=== PATIENT | male | born 1930 | race African-American/Black ===

== ENCOUNTER 2016-12-29 20:15 | Inpatient (IN) | payer MEDICARE, OTHER ==
[~2016-12-29] VITALS: Ht 172.7 cm; Wt 73.0 kg
[2016-12-29] MEDS ORDERED: METHYLPREDNISOLONE SOD SUCC 125 MG/2 ML VIAL IV STA (20:19)
[2016-12-29] MEDS ORDERED: IPRATROPIUM BROMIDE (0.02%) 0.5MG/2.5ML NEB HHN STA (20:19)
[2016-12-29] MEDS ORDERED: ALBUTEROL (0.083%) 2.5MG/3ML NEB HHN STA (20:19)
[2016-12-29] MEDS ORDERED: MAGNESIUM 2 G PREMIX 50 ML IV ONE (20:30)
[2016-12-29] MEDS ORDERED: LIDOCAINE HCL 1%/EPI 1:200,000 30 ML VIAL MC ONE (20:45)
[2016-12-29 20:59] LABS: BASOPHILS % 0.5 % (0.0-2.0); EOSINOPHILS % 6.3 % (0.0-5.0); HEMATOCRIT. 35.1 % (42.0-52.0); HEMOGLOBIN. 11.5 g/dL (14.0-18.0); LYMPHOCYTES % 18.8 % (20.0-50.0); MEAN CORPUSCULAR HEMOGLOBIN 25.8 pg (28.0-32.0); MEAN CORPUSCULAR VOLUME 78.5 fL (80.0-94.0); MEAN PLATELET VOLUME 7.5 fl (7.4-10.4); MONOCYTES % 14.4 % (2.0-8.0); PLATELET 350 x1000/uL (130-400); RED BLOOD CELL COUNT 4.47 mill/uL (4.7-6.1); RED CELL DISTRIBUTION WIDTH 19.2 % (11.6-14.6)
[2016-12-29] MEDS ORDERED: MORPHINE SULFATE 4 MG/ML CPJ (NOT FOR IM USE) IV ONE (21:00)
[2016-12-29] MEDS ORDERED: ONDANSETRON HCL 4MG/2ML VIAL IV ONE (21:00)
[2016-12-29 21:08] LABS: CARBON DIOXIDE 28 mEq/L (21-32); CHLORIDE 103 mEq/L (98-107); INR 1.2; PROTHROMBIN TIME 12.4 sec (9.4-11.6)
[2016-12-29 21:16] LABS: TROPONIN I < 0.02 ng/mL (0.00-0.04)
[2016-12-29] MEDS ORDERED: MORPHINE SULFATE 10 MG/ML CPJ IV SCH (21:30)
[2016-12-29] MEDS ORDERED: MIDAZOLAM HCL 2 MG/2 ML VIAL IV ONE (23:00)
[2016-12-30] VITALS (11 sets, daily range): BP systolic 114–171; BP diastolic 63–95
[2016-12-30] MEDS ORDERED: CEFAZOLIN 1000MG PREMIX 50 ML IV ONE
[2016-12-30] MEDS ORDERED: MORPHINE SULFATE 4 MG/ML CPJ (NOT FOR IM USE) IV ONE (00:15)
[2016-12-30] MEDS ORDERED: MAGNESIUM/ALUMINUM HYDROXIDE/SIMETHICONE 30ML UDC PO PRN (01:00)
[2016-12-30] MEDS ORDERED: ONDANSETRON HCL 4MG/2ML VIAL IV PRN (01:00)
[2016-12-30] MEDS ORDERED: HYDROCODONE/ACETAMINOPHEN 10/325MG TABLET PO PRN (01:00)
[2016-12-30] MEDS ORDERED: NA PHOS,M-B/NA PHOS,DI-BA ENEMA 118ML PR PRN (01:00)
[2016-12-30] MEDS ORDERED: ENOXAPARIN 40MG/0.4ML SYR SUBCUT SCH ×2 (01:00→09:00)
[2016-12-30] MEDS ORDERED: METHYLPREDNISOLONE SOD SUCC 125 MG/2 ML VIAL IV SCH (01:00)
[2016-12-30] MEDS ORDERED: GUAIFENESIN 200MG/10ML SUGAR FREE UDC PO PRN (01:00)
[2016-12-30] MEDS ORDERED: IPRATROPIUM/ALBUTEROL 0.5-3(2.5)MG/3ML NEB INH PRN ×2 (01:00→01:45)
[2016-12-30] MEDS ORDERED: HYDROMORPHONE HCL/PF 2MG/ML CPJ IV PRN (01:00)
[2016-12-30] MEDS ORDERED: DOCUSATE SODIUM 100MG CAPSULE PO PRN (01:00)
[2016-12-30] MEDS ORDERED: LEVOFLOXACIN 500MG PREMIX 100 ML IV SCH ×2 (01:00→06:00)
[2016-12-30] MEDS ORDERED: ACETAMINOPHEN 325MG TABLET PO PRN (01:00)
[2016-12-30] MEDS ORDERED: LORAZEPAM 2MG/ML CPJ IV PRN ×2 (01:00→01:45)
[2016-12-30] MEDS ORDERED: DIPHENHYDRAMINE 50MG/ML VIAL IV PRN (01:00)
[2016-12-30] MEDS ORDERED: CLONIDINE 0.1MG TABLET PO PRN ×2 (01:00→01:45)
[2016-12-30] MEDS ORDERED: MORPHINE SULFATE 10 MG/ML CPJ IV NR (01:15)
[2016-12-30] MEDS ORDERED: FLUT1DIS6 IH (02:49)
[2016-12-30] MEDS ORDERED: MELO-106 PO (02:49)
[2016-12-30] MEDS ORDERED: RIVA20TA PO (02:49)
[2016-12-30] MEDS ORDERED: SIMV40TA5 PO (02:49)
[2016-12-30] MEDS ORDERED: NIFE90TA2 PO (02:49)
[2016-12-30] MEDS ORDERED: CILO100T PO (02:49)
[2016-12-30] MEDS ORDERED: DOCU-138 PO (02:49)
[2016-12-30] MEDS ORDERED: MONT10TA21 PO (02:49)
[2016-12-30] MEDS ORDERED: TAMS-11 PO (02:49)
[2016-12-30] MEDS ORDERED: TRAM50TA3 PO (02:49)
[2016-12-30] MEDS ORDERED: RANI150T7 PO (02:52)
[2016-12-30] MEDS ORDERED: RANITIDINE HCL 75 MG PO PRN (03:00)
[2016-12-30] MEDS ORDERED: TRAMADOL 50MG TABLET PO PRN (03:00)
[2016-12-30] MEDS: HYDROMORPHONE HCL/PF 2MG/ML CPJ IV PRN ×2 (04:18→20:49)
[2016-12-30] MEDS: METHYLPREDNISOLONE SOD SUCC 125 MG/2 ML VIAL IV SCH ×2 (05:32→11:17)
[2016-12-30] MEDS: TRAMADOL 50MG TABLET PO PRN ×2 (08:08→14:44)
[2016-12-30] MEDS: TAMSULOSIN HCL 0.4MG SR CAPSULE PO SCH ×2 (08:10→17:00)
[2016-12-30] MEDS: MONTELUKAST SODIUM 10MG TABLET PO SCH (08:11)
[2016-12-30] MEDS: NIFEDIPINE XL 90MG TAB PO SCH (08:11)
[2016-12-30] MEDS: DOCUSATE SODIUM 100MG CAPSULE PO SCH ×3 (08:15→16:49)
[2016-12-30] MEDS: MELOXICAM 7.5MG TABLET PO SCH (08:16)
[2016-12-30] MEDS ORDERED: MONTELUKAST SODIUM 10MG TABLET PO SCH (09:00)
[2016-12-30] MEDS ORDERED: CILOSTAZOL 50 MG TABLET PO SCH (09:00)
[2016-12-30] MEDS ORDERED: NIFEDIPINE XL 90MG TAB PO SCH (09:00)
[2016-12-30] MEDS ORDERED: SALMETEROL IH SCH (09:00)
[2016-12-30] MEDS ORDERED: CILOSTAZOL 100MG TABLET PO SCH (09:00)
[2016-12-30] MEDS ORDERED: TAMSULOSIN HCL 0.4MG SR CAPSULE PO SCH (09:00)
[2016-12-30] MEDS ORDERED: DOCUSATE SODIUM 100MG CAPSULE PO SCH (09:00)
[2016-12-30] MEDS ORDERED: MEDICATION NOT ON FORMULARY EA (Meloxicam 1 TAB) PO SCH (09:00)
[2016-12-30] MEDS ORDERED: FLUTICASONE IH SCH (09:00)
[2016-12-30] MEDS: ALBUTEROL (0.083%) 2.5MG/3ML NEB HHN SCH ×3 (10:03→20:19)
[2016-12-30] MEDS: RIVAROXABAN 15 MG TABLET PO SCH ×2 (10:15→17:01)
[2016-12-30 11:38] LABS: CARBON DIOXIDE 30 mEq/L (21-32); CHLORIDE 101 mEq/L (98-107); HDL CHOLESTEROL 81 mg/dL (40-59); LDL CHOLESTEROL 72 mg/dL (5-100); T4 FREE 1.09 ng/dL (0.76-1.46)
[2016-12-30] MEDS ORDERED: MEDICATION NOT ON FORMULARY EA (Simvastatin 1 TAB) PO SCH (17:00)
[2016-12-30 17:02] LABS: CREATINE KINASE MB FRACTION 4.5 ng/mL (0.5-3.6)
[2016-12-30] MEDS ORDERED: IOHEXOL-350 100 ML BOTTLE ONE (17:41)
[2016-12-30] MEDS: BUDESONIDE 0.5MG/2ML NEB HHN SCH (20:19)
[2016-12-30] MEDS: ATORVASTATIN CALCIUM 20MG TABLET PO SCH (20:53)
[2016-12-31] VITALS (12 sets, daily range): BP systolic 114–160; BP diastolic 64–90
[2016-12-31 00:10] LABS: CREATINE KINASE MB FRACTION 3.8 ng/mL (0.5-3.6)
[2016-12-31] MEDS: ALBUTEROL (0.083%) 2.5MG/3ML NEB HHN SCH ×4 (02:18→20:55)
[2016-12-31] MEDS: LEVOFLOXACIN 500MG PREMIX 100 ML IV SCH (06:04)
[2016-12-31 06:39] LABS: HEMATOCRIT. 29.8 % (42.0-52.0); HEMOGLOBIN. 9.7 g/dL (14.0-18.0); MEAN CORPUSCULAR HEMOGLOBIN 25.7 pg (28.0-32.0); MEAN CORPUSCULAR VOLUME 78.8 fL (80.0-94.0); MEAN PLATELET VOLUME 7.6 fl (7.4-10.4); PLATELET 272 x1000/uL (130-400); RED BLOOD CELL COUNT 3.78 mill/uL (4.7-6.1); RED CELL DISTRIBUTION WIDTH 19.6 % (11.6-14.6)
[2016-12-31 07:10] LABS: CREATINE KINASE MB FRACTION 2.9 ng/mL (0.5-3.6)
[2016-12-31 07:12] LABS: CARBON DIOXIDE 32 mEq/L (21-32); CHLORIDE 102 mEq/L (98-107)
[2016-12-31] MEDS: HYDROMORPHONE HCL/PF 2MG/ML CPJ IV PRN ×2 (07:30→16:05)
[2016-12-31] MEDS: NIFEDIPINE XL 90MG TAB PO SCH (08:05)
[2016-12-31] MEDS: MONTELUKAST SODIUM 10MG TABLET PO SCH (08:05)
[2016-12-31] MEDS: DOCUSATE SODIUM 100MG CAPSULE PO SCH ×3 (08:05→17:07)
[2016-12-31] MEDS: METHYLPREDNISOLONE SOD SUCC 40 MG/ML VIAL IV SCH (08:05)
[2016-12-31] MEDS: RIVAROXABAN 15 MG TABLET PO SCH ×2 (08:06→17:08)
[2016-12-31] MEDS: MELOXICAM 7.5MG TABLET PO SCH (08:06)
[2016-12-31] MEDS: TAMSULOSIN HCL 0.4MG SR CAPSULE PO SCH ×2 (08:06→17:08)
[2016-12-31] MEDS: BUDESONIDE 0.5MG/2ML NEB HHN SCH ×2 (08:34→20:55)
[2016-12-31 13:10] LABS: PLATELET ESTIMATE NORMAL
[2016-12-31] MEDS ORDERED: LIDOCAINE HCL 1% 20ML VIAL (Pyxis) INJ ONE (14:26)
[2016-12-31] MEDS ORDERED: SODIUM BICARBONATE 4% (2.4MEQ) 5ML VIAL IV ONE (14:27)
[2016-12-31] MEDS: ATORVASTATIN CALCIUM 20MG TABLET PO SCH (21:31)
[2017-01-01] VITALS (19 sets, daily range): BP systolic 103–153; BP diastolic 54–78
[2017-01-01] MEDS: ALBUTEROL (0.083%) 2.5MG/3ML NEB HHN SCH ×2 (01:54→08:43)
[2017-01-01] MEDS: HYDROMORPHONE HCL/PF 2MG/ML CPJ IV PRN (02:29)
[2017-01-01] MEDS: DOCUSATE SODIUM 100MG CAPSULE PO PRN (02:39)
[2017-01-01] MEDS: LEVOFLOXACIN 500MG PREMIX 100 ML IV SCH (06:19)
[2017-01-01 06:56] LABS: BASOPHILS % 0.3 % (0.0-2.0); EOSINOPHILS % 2.9 % (0.0-5.0); HEMATOCRIT. 32.3 % (42.0-52.0); HEMOGLOBIN. 10.5 g/dL (14.0-18.0); LYMPHOCYTES % 15.3 % (20.0-50.0); MEAN CORPUSCULAR HEMOGLOBIN 25.9 pg (28.0-32.0); MEAN CORPUSCULAR VOLUME 79.4 fL (80.0-94.0); MEAN PLATELET VOLUME 7.8 fl (7.4-10.4); MONOCYTES % 13.7 % (2.0-8.0); NEUTROPHILS % 67.8 % (40.0-76.0); PLATELET 288 x1000/uL (130-400); RED BLOOD CELL COUNT 4.07 mill/uL (4.7-6.1); RED CELL DISTRIBUTION WIDTH 19.8 % (11.6-14.6)
[2017-01-01 07:16] LABS: CARBON DIOXIDE 30 mEq/L (21-32); CHLORIDE 102 mEq/L (98-107)
[2017-01-01] MEDS: BUDESONIDE 0.5MG/2ML NEB HHN SCH ×2 (08:43→20:12)
[2017-01-01] MEDS: MELOXICAM 7.5MG TABLET PO SCH (09:24)
[2017-01-01] MEDS: RIVAROXABAN 15 MG TABLET PO SCH ×2 (09:24→18:21)
[2017-01-01] MEDS: DOCUSATE SODIUM 100MG CAPSULE PO SCH ×3 (09:24→18:21)
[2017-01-01] MEDS: METHYLPREDNISOLONE SOD SUCC 40 MG/ML VIAL IV SCH (09:24)
[2017-01-01] MEDS: MONTELUKAST SODIUM 10MG TABLET PO SCH (09:24)
[2017-01-01] MEDS: HYDROCODONE/ACETAMINOPHEN 10/325MG TABLET PO PRN (09:27)
[2017-01-01] MEDS: NIFEDIPINE XL 90MG TAB PO SCH (09:43)
[2017-01-01] MEDS: TAMSULOSIN HCL 0.4MG SR CAPSULE PO SCH ×2 (09:45→18:20)
[2017-01-01] MEDS: IPRATROPIUM/ALBUTEROL 0.5-3(2.5)MG/3ML NEB HHN SCH ×4 (14:02→23:39)
[2017-01-01] MEDS: ATORVASTATIN CALCIUM 20MG TABLET PO SCH (21:13)
[2017-01-02] VITALS (12 sets, daily range): BP systolic 110–129; BP diastolic 59–87
[2017-01-02] MEDS: HYDROMORPHONE HCL/PF 2MG/ML CPJ IV PRN ×4 (02:53→18:25)
[2017-01-02] MEDS: IPRATROPIUM/ALBUTEROL 0.5-3(2.5)MG/3ML NEB HHN SCH ×5 (04:23→21:07)
[2017-01-02] MEDS: LEVOFLOXACIN 500MG PREMIX 100 ML IV SCH (05:47)
[2017-01-02 06:22] LABS: BASOPHILS % 0.5 % (0.0-2.0); EOSINOPHILS % 4.9 % (0.0-5.0); HEMATOCRIT. 29.8 % (42.0-52.0); HEMOGLOBIN. 9.9 g/dL (14.0-18.0); LYMPHOCYTES % 19.8 % (20.0-50.0); MEAN CORPUSCULAR VOLUME 78.4 fL (80.0-94.0); MEAN PLATELET VOLUME 7.6 fl (7.4-10.4); MONOCYTES % 14.4 % (2.0-8.0); NEUTROPHILS % 60.4 % (40.0-76.0); PLATELET 274 x1000/uL (130-400); RED CELL DISTRIBUTION WIDTH 19.8 % (11.6-14.6)
[2017-01-02 07:17] LABS: CARBON DIOXIDE 31 mEq/L (21-32); CHLORIDE 103 mEq/L (98-107)
[2017-01-02] MEDS: BUDESONIDE 0.5MG/2ML NEB HHN SCH ×2 (08:14→21:08)
[2017-01-02] MEDS: METHYLPREDNISOLONE SOD SUCC 40 MG/ML VIAL IV SCH (09:17)
[2017-01-02] MEDS: RIVAROXABAN 15 MG TABLET PO SCH ×2 (09:18→18:46)
[2017-01-02] MEDS: MELOXICAM 7.5MG TABLET PO SCH (09:18)
[2017-01-02] MEDS: DOCUSATE SODIUM 100MG CAPSULE PO SCH ×3 (09:18→18:47)
[2017-01-02] MEDS: MONTELUKAST SODIUM 10MG TABLET PO SCH (09:19)
[2017-01-02] MEDS: TAMSULOSIN HCL 0.4MG SR CAPSULE PO SCH ×2 (09:19→18:46)
[2017-01-02] MEDS: NIFEDIPINE XL 90MG TAB PO SCH (09:28)
[2017-01-02] MEDS: DIPHENHYDRAMINE 50MG/ML VIAL IV PRN (16:07)
[2017-01-02] MEDS: HYDROCODONE/ACETAMINOPHEN 10/325MG TABLET PO PRN ×2 (16:37→21:36)
[2017-01-02] MEDS ORDERED: LACTULOSE 20G/30ML UDC PO PRN (20:00)
[2017-01-02] MEDS: ATORVASTATIN CALCIUM 20MG TABLET PO SCH (20:29)
[2017-01-03] VITALS (15 sets, daily range): BP systolic 113–150; BP diastolic 61–87
[2017-01-03] MEDS: IPRATROPIUM/ALBUTEROL 0.5-3(2.5)MG/3ML NEB HHN SCH ×6 (00:27→20:43)
[2017-01-03 06:49] LABS: BASOPHILS % 0.5 % (0.0-2.0); EOSINOPHILS % 6.1 % (0.0-5.0); HEMATOCRIT. 30.4 % (42.0-52.0); HEMOGLOBIN. 9.8 g/dL (14.0-18.0); LYMPHOCYTES % 23.7 % (20.0-50.0); MEAN CORPUSCULAR HEMOGLOBIN 25.4 pg (28.0-32.0); MEAN CORPUSCULAR VOLUME 78.8 fL (80.0-94.0); MEAN PLATELET VOLUME 7.8 fl (7.4-10.4); MONOCYTES % 13.7 % (2.0-8.0); PLATELET 261 x1000/uL (130-400); RED BLOOD CELL COUNT 3.86 mill/uL (4.7-6.1); RED CELL DISTRIBUTION WIDTH 19.3 % (11.6-14.6)
[2017-01-03 08:02] LABS: CARBON DIOXIDE 29 mEq/L (21-32); CHLORIDE 103 mEq/L (98-107)
[2017-01-03] MEDS: BUDESONIDE 0.5MG/2ML NEB HHN SCH ×2 (08:14→20:43)
[2017-01-03] MEDS: MONTELUKAST SODIUM 10MG TABLET PO SCH (08:51)
[2017-01-03] MEDS: MELOXICAM 7.5MG TABLET PO SCH (08:51)
[2017-01-03] MEDS: TAMSULOSIN HCL 0.4MG SR CAPSULE PO SCH ×2 (08:51→18:01)
[2017-01-03] MEDS: DOCUSATE SODIUM 100MG CAPSULE PO SCH ×3 (08:51→18:01)
[2017-01-03] MEDS: TRAMADOL 50MG TABLET PO PRN ×3 (08:52→20:38)
[2017-01-03] MEDS: RIVAROXABAN 15 MG TABLET PO SCH ×2 (08:53→18:06)
[2017-01-03] MEDS: LEVOFLOXACIN 500MG TABLET PO SCH (10:18)
[2017-01-03] MEDS: PREDNISONE 20MG TABLET PO SCH (10:18)
[2017-01-03] MEDS: NIFEDIPINE XL 90MG TAB PO SCH (10:18)
[2017-01-03] MEDS: NA PHOS,M-B/NA PHOS,DI-BA ENEMA 118ML PR PRN (14:44)
[2017-01-03] MEDS: ATORVASTATIN CALCIUM 20MG TABLET PO SCH (20:37)
[2017-01-03] MEDS: HYDROMORPHONE HCL/PF 2MG/ML CPJ IV PRN (23:54)
[2017-01-04] VITALS (14 sets, daily range): BP systolic 99–148; BP diastolic 57–88
[2017-01-04] MEDS: IPRATROPIUM/ALBUTEROL 0.5-3(2.5)MG/3ML NEB HHN SCH ×7 (00:29→23:44)
[2017-01-04 06:07] LABS: BASOPHILS % 0.1 % (0.0-2.0); HEMATOCRIT. 36.5 % (42.0-52.0); HEMOGLOBIN. 11.6 g/dL (14.0-18.0); MEAN CORPUSCULAR HEMOGLOBIN 25.3 pg (28.0-32.0); MEAN CORPUSCULAR VOLUME 79.3 fL (80.0-94.0); MEAN PLATELET VOLUME 8.1 fl (7.4-10.4); MONOCYTES % 8.4 % (2.0-8.0); NEUTROPHILS % 86.5 % (40.0-76.0); PLATELET 241 x1000/uL (130-400); RED CELL DISTRIBUTION WIDTH 19.4 % (11.6-14.6)
[2017-01-04 06:26] LABS: CARBON DIOXIDE 27 mEq/L (21-32); CHLORIDE 100 mEq/L (98-107)
[2017-01-04] MEDS: BUDESONIDE 0.5MG/2ML NEB HHN SCH ×2 (08:05→20:23)
[2017-01-04] MEDS: TAMSULOSIN HCL 0.4MG SR CAPSULE PO SCH ×2 (08:46→18:14)
[2017-01-04] MEDS: DOCUSATE SODIUM 100MG CAPSULE PO SCH ×3 (08:46→18:13)
[2017-01-04] MEDS: MELOXICAM 7.5MG TABLET PO SCH (08:47)
[2017-01-04] MEDS: NIFEDIPINE XL 90MG TAB PO SCH (08:47)
[2017-01-04] MEDS: PREDNISONE 20MG TABLET PO SCH (08:47)
[2017-01-04] MEDS: RIVAROXABAN 15 MG TABLET PO SCH ×2 (08:47→18:14)
[2017-01-04] MEDS: MONTELUKAST SODIUM 10MG TABLET PO SCH (08:47)
[2017-01-04] MEDS: HYDROMORPHONE HCL/PF 2MG/ML CPJ IV PRN ×4 (09:10→23:00)
[2017-01-04] MEDS: LEVOFLOXACIN 500MG TABLET PO SCH (11:43)
[2017-01-04] MEDS: HYDROCODONE/ACETAMINOPHEN 10/325MG TABLET PO PRN ×2 (13:09→20:29)
[2017-01-04] MEDS: ATORVASTATIN CALCIUM 20MG TABLET PO SCH (20:29)
[2017-01-05] VITALS (12 sets, daily range): BP systolic 93–133; BP diastolic 55–75
[2017-01-05] MEDS: IPRATROPIUM/ALBUTEROL 0.5-3(2.5)MG/3ML NEB HHN SCH ×5 (03:47→20:06)
[2017-01-05 06:03] LABS: HEMATOCRIT. 30.3 % (42.0-52.0); HEMOGLOBIN. 9.6 g/dL (14.0-18.0); MEAN CORPUSCULAR HEMOGLOBIN 24.9 pg (28.0-32.0); MEAN CORPUSCULAR VOLUME 78.9 fL (80.0-94.0); MEAN PLATELET VOLUME 7.9 fl (7.4-10.4); PLATELET 225 x1000/uL (130-400); RED BLOOD CELL COUNT 3.84 mill/uL (4.7-6.1); RED CELL DISTRIBUTION WIDTH 19.7 % (11.6-14.6)
[2017-01-05 06:47] LABS: CARBON DIOXIDE 29 mEq/L (21-32); CHLORIDE 100 mEq/L (98-107)
[2017-01-05] MEDS: BUDESONIDE 0.5MG/2ML NEB HHN SCH (08:00)
[2017-01-05] MEDS: NIFEDIPINE XL 90MG TAB PO SCH (08:48)
[2017-01-05] MEDS: MELOXICAM 7.5MG TABLET PO SCH (08:48)
[2017-01-05] MEDS: PREDNISONE 20MG TABLET PO SCH (08:49)
[2017-01-05] MEDS: RIVAROXABAN 15 MG TABLET PO SCH (08:49)
[2017-01-05] MEDS: TAMSULOSIN HCL 0.4MG SR CAPSULE PO SCH ×2 (08:49→17:10)
[2017-01-05] MEDS: MONTELUKAST SODIUM 10MG TABLET PO SCH (08:49)
[2017-01-05] MEDS: DOCUSATE SODIUM 100MG CAPSULE PO SCH ×3 (08:49→16:51)
[2017-01-05 10:09] LABS: PLATELET ESTIMATE NORMAL
[2017-01-05] MEDS: LEVOFLOXACIN 500MG TABLET PO SCH (11:20)
[2017-01-05] MEDS: HYDROCODONE/ACETAMINOPHEN 10/325MG TABLET PO PRN (11:24)
[2017-01-05] MEDS: HYDROMORPHONE HCL/PF 2MG/ML CPJ IV PRN (20:15)
[2017-01-05] MEDS: ATORVASTATIN CALCIUM 20MG TABLET PO SCH (21:47)
[2017-01-06] VITALS (12 sets, daily range): BP systolic 100–137; BP diastolic 54–72
[2017-01-06] MEDS: IPRATROPIUM/ALBUTEROL 0.5-3(2.5)MG/3ML NEB HHN SCH ×6 (00:34→21:13)
[2017-01-06] MEDS: HYDROMORPHONE HCL/PF 2MG/ML CPJ IV PRN ×4 (00:35→20:57)
[2017-01-06] MEDS: ACETAMINOPHEN 325MG TABLET PO PRN (00:59)
[2017-01-06 06:19] LABS: HEMATOCRIT. 28.8 % (42.0-52.0); HEMOGLOBIN. 9.3 g/dL (14.0-18.0); MEAN CORPUSCULAR HEMOGLOBIN 25.1 pg (28.0-32.0); MEAN CORPUSCULAR VOLUME 77.9 fL (80.0-94.0); MEAN PLATELET VOLUME 8.4 fl (7.4-10.4); PLATELET 239 x1000/uL (130-400); RED CELL DISTRIBUTION WIDTH 18.7 % (11.6-14.6)
[2017-01-06 06:56] LABS: CHLORIDE 96 mEq/L (98-107)
[2017-01-06 07:11] LABS: CARBON DIOXIDE 28 mEq/L (21-32)
[2017-01-06 08:51] LABS: BG BASE EXCESS 4.3 mmol/L (-2.0-2.0); BG CARBOXYHEMOGLOBIN 0.1 % (0.5-1.5); BG DEOXYHEMOGLOBIN 8.2 % (0.0-5.0); BG FRACTION INSPIRED OXYGEN 32; BG HCO3 ACT 28.4 mmol/L (22.0-26.0); BG METHEMOGLOBIN 0.3 % (0.0-1.5); BG OXYGEN SATURATION 91.8 % (92.0-98.5); BG OXYHEMOGLOBIN 91.4 % (94.0-97.0); BG PCO2 40.9 mmHg (35.0-45.0); BG PO2 59.7 mmHg (75.0-100.0); BG SAMPLE SITE RIGHT BRACHIAL; BG TOTAL HEMOGLOBIN 10.5 g/dL (12.0-18.0); BG VENT MODE NASAL CANNULA
[2017-01-06] MEDS: TAMSULOSIN HCL 0.4MG SR CAPSULE PO SCH ×2 (08:53→17:29)
[2017-01-06] MEDS: PREDNISONE 20MG TABLET PO SCH (08:54)
[2017-01-06] MEDS: MELOXICAM 7.5MG TABLET PO SCH (08:54)
[2017-01-06] MEDS: MONTELUKAST SODIUM 10MG TABLET PO SCH (08:54)
[2017-01-06] MEDS: NIFEDIPINE XL 90MG TAB PO SCH (08:54)
[2017-01-06] MEDS: DOCUSATE SODIUM 100MG CAPSULE PO SCH ×3 (08:55→16:57)
[2017-01-06 10:17] LABS: PLATELET ESTIMATE NORMAL
[2017-01-06] MEDS: LEVOFLOXACIN 500MG TABLET PO SCH (11:25)
[2017-01-06] MEDS: HYDROCODONE/ACETAMINOPHEN 10/325MG TABLET PO PRN (11:33)
[2017-01-06] MEDS: ATORVASTATIN CALCIUM 20MG TABLET PO SCH (20:58)
[2017-01-07] VITALS (17 sets, daily range): BP systolic 83–148; BP diastolic 56–89
[2017-01-07] MEDS: IPRATROPIUM/ALBUTEROL 0.5-3(2.5)MG/3ML NEB HHN SCH ×6 (01:10→20:32)
[2017-01-07] MEDS: HYDROMORPHONE HCL/PF 2MG/ML CPJ IV PRN ×2 (05:09→21:12)
[2017-01-07] MEDS: GUAIFENESIN 200MG/10ML SUGAR FREE UDC PO PRN (08:28)
[2017-01-07] MEDS: HYDROCODONE/ACETAMINOPHEN 10/325MG TABLET PO PRN ×3 (08:31→19:54)
[2017-01-07] MEDS: MONTELUKAST SODIUM 10MG TABLET PO SCH (08:32)
[2017-01-07] MEDS: TAMSULOSIN HCL 0.4MG SR CAPSULE PO SCH ×2 (08:32→17:57)
[2017-01-07] MEDS: NIFEDIPINE XL 90MG TAB PO SCH (08:32)
[2017-01-07] MEDS: PREDNISONE 20MG TABLET PO SCH (08:32)
[2017-01-07] MEDS: DOCUSATE SODIUM 100MG CAPSULE PO SCH ×3 (08:32→17:57)
[2017-01-07] MEDS: MELOXICAM 7.5MG TABLET PO SCH (09:01)
[2017-01-07] MEDS: LEVOFLOXACIN 500MG TABLET PO SCH (13:32)
[2017-01-07] MEDS: ATORVASTATIN CALCIUM 20MG TABLET PO SCH (21:11)
[2017-01-07] MEDS: BUDESONIDE 0.5MG/2ML NEB HHN SCH (21:30)
[2017-01-07] MEDS ORDERED: BUDESONIDE 0.5MG/2ML NEB ONE (21:34)
[2017-01-08] VITALS (12 sets, daily range): BP systolic 102–146; BP diastolic 62–76
[2017-01-08] MEDS: IPRATROPIUM/ALBUTEROL 0.5-3(2.5)MG/3ML NEB HHN SCH ×6 (00:35→21:09)
[2017-01-08 06:50] LABS: HEMATOCRIT. 27.7 % (42.0-52.0); MEAN CORPUSCULAR HEMOGLOBIN 25.1 pg (28.0-32.0); MEAN CORPUSCULAR VOLUME 77.4 fL (80.0-94.0); MEAN PLATELET VOLUME 8.4 fl (7.4-10.4); PLATELET 262 x1000/uL (130-400); RED BLOOD CELL COUNT 3.58 mill/uL (4.7-6.1); RED CELL DISTRIBUTION WIDTH 18.5 % (11.6-14.6)
[2017-01-08 06:53] LABS: CARBON DIOXIDE 28 mEq/L (21-32); CHLORIDE 96 mEq/L (98-107)
[2017-01-08] MEDS: PREDNISONE 20MG TABLET PO SCH (08:14)
[2017-01-08] MEDS: MELOXICAM 7.5MG TABLET PO SCH (08:14)
[2017-01-08] MEDS: MONTELUKAST SODIUM 10MG TABLET PO SCH (08:15)
[2017-01-08] MEDS: NIFEDIPINE XL 90MG TAB PO SCH (08:15)
[2017-01-08] MEDS: DOCUSATE SODIUM 100MG CAPSULE PO SCH ×3 (08:15→18:18)
[2017-01-08] MEDS: TAMSULOSIN HCL 0.4MG SR CAPSULE PO SCH ×2 (08:15→18:20)
[2017-01-08] MEDS: BUDESONIDE 0.5MG/2ML NEB HHN SCH ×2 (08:16→21:10)
[2017-01-08] MEDS: HYDROCODONE/ACETAMINOPHEN 10/325MG TABLET PO PRN ×2 (08:26→13:44)
[2017-01-08 10:03] LABS: PLATELET ESTIMATE NORMAL
[2017-01-08] MEDS: LACTULOSE 20G/30ML UDC PO SCH ×2 (11:00→18:18)
[2017-01-08] MEDS: LEVOFLOXACIN 750MG PREMIX 150 ML IV SCH (12:27)
[2017-01-08] MEDS ORDERED: DIATR MEGLU/DIATRIZOATE SOLN 30ML PO NR (12:45)
[2017-01-08 13:24] LABS: CLARITY URINE CLOUDY (CLEAR); COLOR URINE YELLOW (YELLOW); GLUCOSE URINE NEGATIVE (NEGATIVE); KETONES URINE NEGATIVE (NEGATIVE); LEUKOCYTE ESTERASE URINE 2+ (NEGATIVE); NITRITE URINE NEGATIVE (NEGATIVE); OCCULT BLOOD URINE TRACE (NEGATIVE); PH URINE 5.5 (4.5-8.0); PROTEIN URINE 2+ (NEGATIVE); SPECIFIC GRAVITY URINE 1.021 (1.005-1.030); UROBILINOGEN URINE 0.2 E.U./dL (0.2-1.0)
[2017-01-08] MEDS ORDERED: MORPHINE SULFATE 4 MG/ML CPJ (NOT FOR IM USE) IV NR (15:15)
[2017-01-08 15:17] LABS: HEMATOCRIT. 28.5 % (42.0-52.0); HEMOGLOBIN. 9.2 g/dL (14.0-18.0); MEAN CORPUSCULAR HEMOGLOBIN 25.5 pg (28.0-32.0); MEAN CORPUSCULAR VOLUME 79.2 fL (80.0-94.0); MEAN PLATELET VOLUME 8.2 fl (7.4-10.4); PLATELET 293 x1000/uL (130-400); RED CELL DISTRIBUTION WIDTH 18.9 % (11.6-14.6)
[2017-01-08 15:19] LABS: BG BASE EXCESS -0.8 mmol/L (-2.0-2.0); BG CARBOXYHEMOGLOBIN 0.3 % (0.5-1.5); BG DEOXYHEMOGLOBIN 1.9 % (0.0-5.0); BG FRACTION INSPIRED OXYGEN 99.8; BG HCO3 ACT 21.9 mmol/L (22.0-26.0); BG METHEMOGLOBIN 0.5 % (0.0-1.5); BG OXYGEN SATURATION 98.1 % (92.0-98.5); BG OXYHEMOGLOBIN 97.3 % (94.0-97.0); BG PH 7.495 (7.350-7.450); BG PO2 103.7 mmHg (75.0-100.0); BG SAMPLE SITE LEFT BRACHIAL; BG TOTAL HEMOGLOBIN 9.8 g/dL (12.0-18.0); BG VENT MODE MASK - NRB
[2017-01-08 15:21] LABS: INR 1.1; PROTHROMBIN TIME 11.6 sec (9.4-11.6)
[2017-01-08 20:42] LABS: PLATELET ESTIMATE NORMAL
[2017-01-08] MEDS: ATORVASTATIN CALCIUM 20MG TABLET PO SCH (21:05)
[2017-01-08] MEDS: MORPHINE SULFATE 4 MG/ML CPJ (NOT FOR IM USE) IV PRN (23:09)
[2017-01-09] VITALS (12 sets, daily range): BP systolic 96–134; BP diastolic 55–78
[2017-01-09] MEDS: IPRATROPIUM/ALBUTEROL 0.5-3(2.5)MG/3ML NEB HHN SCH ×6 (00:49→20:05)
[2017-01-09 06:07] LABS: HEMATOCRIT. 26.1 % (42.0-52.0); HEMOGLOBIN. 8.6 g/dL (14.0-18.0); MEAN CORPUSCULAR HEMOGLOBIN 25.6 pg (28.0-32.0); MEAN CORPUSCULAR VOLUME 78.1 fL (80.0-94.0); MEAN PLATELET VOLUME 8.4 fl (7.4-10.4); PLATELET 266 x1000/uL (130-400); RED BLOOD CELL COUNT 3.34 mill/uL (4.7-6.1); RED CELL DISTRIBUTION WIDTH 19.1 % (11.6-14.6)
[2017-01-09 06:32] LABS: CARBON DIOXIDE 26 mEq/L (21-32); CHLORIDE 96 mEq/L (98-107)
[2017-01-09] MEDS: NA PHOS,M-B/NA PHOS,DI-BA ENEMA 118ML PR PRN (08:29)
[2017-01-09] MEDS: NIFEDIPINE XL 90MG TAB PO SCH (09:00)
[2017-01-09] MEDS: TAMSULOSIN HCL 0.4MG SR CAPSULE PO SCH ×2 (09:28→17:50)
[2017-01-09] MEDS: BISACODYL 5MG TABLET PO PRN (09:28)
[2017-01-09] MEDS: MELOXICAM 7.5MG TABLET PO SCH (09:29)
[2017-01-09] MEDS: DOCUSATE SODIUM 100MG CAPSULE PO SCH ×3 (09:29→17:49)
[2017-01-09] MEDS: MONTELUKAST SODIUM 10MG TABLET PO SCH (09:30)
[2017-01-09] MEDS: PREDNISONE 20MG TABLET PO SCH (09:30)
[2017-01-09] MEDS: BUDESONIDE 0.5MG/2ML NEB HHN SCH ×2 (09:57→20:05)
[2017-01-09] MEDS: LEVOFLOXACIN 750MG PREMIX 150 ML IV SCH (11:08)
[2017-01-09] MEDS: MORPHINE SULFATE 4 MG/ML CPJ (NOT FOR IM USE) IV PRN ×2 (12:25→22:58)
[2017-01-09 12:42] LABS: PLATELET ESTIMATE NORMAL
[2017-01-09] MEDS: ACETAMINOPHEN 325MG TABLET PO PRN (21:12)
[2017-01-09] MEDS: ATORVASTATIN CALCIUM 20MG TABLET PO SCH (21:12)
[2017-01-09] MEDS: ONDANSETRON HCL 4MG/2ML VIAL IV PRN (21:35)
[2017-01-10] VITALS (15 sets, daily range): BP systolic 94–124; BP diastolic 48–64
[2017-01-10] MEDS: IPRATROPIUM/ALBUTEROL 0.5-3(2.5)MG/3ML NEB HHN SCH ×6 (00:07→20:26)
[2017-01-10 06:19] LABS: HEMOGLOBIN. 7.4 g/dL (14.0-18.0); MEAN CORPUSCULAR HEMOGLOBIN 24.7 pg (28.0-32.0); MEAN CORPUSCULAR VOLUME 76.9 fL (80.0-94.0); MEAN PLATELET VOLUME 7.9 fl (7.4-10.4); PLATELET 253 x1000/uL (130-400); RED CELL DISTRIBUTION WIDTH 18.5 % (11.6-14.6)
[2017-01-10 06:46] LABS: CARBON DIOXIDE 28 mEq/L (21-32); CHLORIDE 97 mEq/L (98-107)
[2017-01-10] MEDS: MONTELUKAST SODIUM 10MG TABLET PO SCH (08:06)
[2017-01-10] MEDS: TAMSULOSIN HCL 0.4MG SR CAPSULE PO SCH ×2 (08:06→17:27)
[2017-01-10] MEDS: NIFEDIPINE XL 90MG TAB PO SCH (08:06)
[2017-01-10] MEDS: DOCUSATE SODIUM 100MG CAPSULE PO SCH ×3 (08:07→17:26)
[2017-01-10] MEDS: MELOXICAM 7.5MG TABLET PO SCH (08:07)
[2017-01-10] MEDS: BISACODYL 5MG TABLET PO PRN (08:07)
[2017-01-10] MEDS: BUDESONIDE 0.5MG/2ML NEB HHN SCH (08:11)
[2017-01-10] MEDS: MORPHINE SULFATE 4 MG/ML CPJ (NOT FOR IM USE) IV PRN ×2 (09:54→19:10)
[2017-01-10 10:56] LABS: PLATELET ESTIMATE NORMAL
[2017-01-10] MEDS: LEVOFLOXACIN 750MG PREMIX 150 ML IV SCH (11:44)
[2017-01-10] MEDS: GUAIFENESIN 200MG/10ML SUGAR FREE UDC PO PRN (13:19)
[2017-01-10] MEDS: ACETAMINOPHEN 325MG TABLET PO PRN (20:43)
[2017-01-10] MEDS: ATORVASTATIN CALCIUM 20MG TABLET PO SCH (20:43)
[2017-01-10] MEDS: GUAIFENESIN 600MG ER TABLET PO SCH (20:43)
[2017-01-10] MEDS: DIPHENHYDRAMINE 50MG/ML VIAL IV PRN (21:00)
[2017-01-11] VITALS (23 sets, daily range): BP systolic 103–145; BP diastolic 52–81
[2017-01-11] MEDS: IPRATROPIUM/ALBUTEROL 0.5-3(2.5)MG/3ML NEB HHN SCH ×6 (00:12→22:17)
[2017-01-11] MEDS: MORPHINE SULFATE 4 MG/ML CPJ (NOT FOR IM USE) IV PRN (04:28)
[2017-01-11] MEDS: ACETAMINOPHEN 325MG TABLET PO PRN ×3 (07:32→23:38)
[2017-01-11] MEDS: BISACODYL 5MG TABLET PO PRN (08:33)
[2017-01-11] MEDS: DOCUSATE SODIUM 100MG CAPSULE PO PRN (08:33)
[2017-01-11] MEDS: MELOXICAM 7.5MG TABLET PO SCH (08:35)
[2017-01-11] MEDS: GUAIFENESIN 600MG ER TABLET PO SCH ×2 (08:35→20:24)
[2017-01-11] MEDS: TAMSULOSIN HCL 0.4MG SR CAPSULE PO SCH ×2 (08:35→17:16)
[2017-01-11] MEDS: MONTELUKAST SODIUM 10MG TABLET PO SCH (08:36)
[2017-01-11] MEDS: NIFEDIPINE XL 90MG TAB PO SCH (08:36)
[2017-01-11] MEDS: DIPHENHYDRAMINE 50MG/ML VIAL IV PRN ×2 (09:37→22:05)
[2017-01-11] MEDS: LACTULOSE 20G/30ML UDC PO SCH ×3 (10:31→17:15)
[2017-01-11] MEDS: MAGNESIUM/ALUMINUM HYDROXIDE/SIMETHICONE 30ML UDC PO PRN ×2 (10:31→17:17)
[2017-01-11] MEDS: NA PHOS,M-B/NA PHOS,DI-BA ENEMA 118ML PR PRN (10:32)
[2017-01-11] MEDS: LEVOFLOXACIN 750MG PREMIX 150 ML IV SCH (11:08)
[2017-01-11] MEDS: DOCUSATE SODIUM 100MG CAPSULE PO SCH ×3 (12:00→17:00)
[2017-01-11 12:15] LABS: MEAN CORPUSCULAR VOLUME 80.2 fL (80.0-94.0); MEAN PLATELET VOLUME 7.7 fl (7.4-10.4); PLATELET 291 x1000/uL (130-400); RED BLOOD CELL COUNT 4.24 mill/uL (4.7-6.1); RED CELL DISTRIBUTION WIDTH 18.2 % (11.6-14.6)
[2017-01-11 12:23] LABS: HEMOGLOBIN. 11.4 g/dL (14.0-18.0)
[2017-01-11 12:27] LABS: CARBON DIOXIDE 28 mEq/L (21-32); CHLORIDE 98 mEq/L (98-107)
[2017-01-11 13:01] LABS: PLATELET ESTIMATE NORMAL
[2017-01-11] MEDS: SIMETHICONE 80MG TABLET CHEW PO PRN (20:24)
[2017-01-11] MEDS: HYDROCORTISONE ACETATE 25MG SUPP PR SCH (20:24)
[2017-01-11] MEDS: ATORVASTATIN CALCIUM 20MG TABLET PO SCH (20:24)
[2017-01-12] VITALS (12 sets, daily range): BP systolic 97–128; BP diastolic 56–69
[2017-01-12] MEDS: ZOLPIDEM TARTRATE 5MG TABLET PO PRN (00:53)
[2017-01-12] MEDS: IPRATROPIUM/ALBUTEROL 0.5-3(2.5)MG/3ML NEB HHN SCH ×6 (01:29→21:10)
[2017-01-12 06:45] LABS: HEMATOCRIT. 36.1 % (42.0-52.0); MEAN CORPUSCULAR HEMOGLOBIN 26.9 pg (28.0-32.0); MEAN CORPUSCULAR VOLUME 80.8 fL (80.0-94.0); MEAN PLATELET VOLUME 7.7 fl (7.4-10.4); PLATELET 316 x1000/uL (130-400); RED BLOOD CELL COUNT 4.46 mill/uL (4.7-6.1); RED CELL DISTRIBUTION WIDTH 18.8 % (11.6-14.6)
[2017-01-12 07:09] LABS: CARBON DIOXIDE 29 mEq/L (21-32); CHLORIDE 99 mEq/L (98-107); PHOSPHORUS 2.6 mg/dL (2.5-4.9)
[2017-01-12] MEDS: TAMSULOSIN HCL 0.4MG SR CAPSULE PO SCH ×2 (09:10→17:14)
[2017-01-12] MEDS: NIFEDIPINE XL 90MG TAB PO SCH (09:10)
[2017-01-12] MEDS: LACTULOSE 20G/30ML UDC PO SCH ×3 (09:11→17:00)
[2017-01-12] MEDS: GUAIFENESIN 600MG ER TABLET PO SCH ×2 (09:11→20:04)
[2017-01-12] MEDS: DOCUSATE SODIUM 100MG CAPSULE PO SCH ×3 (09:11→17:00)
[2017-01-12] MEDS: SIMETHICONE 80MG TABLET CHEW PO PRN (09:17)
[2017-01-12] MEDS ORDERED: LORAZEPAM 2MG/ML CPJ IV PRN (09:30)
[2017-01-12 09:36] LABS: PLATELET ESTIMATE NORMAL
[2017-01-12] MEDS: TRAMADOL 50MG TABLET PO PRN (09:39)
[2017-01-12] MEDS: LEVOFLOXACIN 750MG PREMIX 150 ML IV SCH (10:28)
[2017-01-12] MEDS: HYDROCORTISONE ACETATE 25MG SUPP PR SCH ×2 (11:32→20:04)
[2017-01-12] MEDS: BUDESONIDE 0.5MG/2ML NEB HHN SCH ×2 (11:50→21:10)
[2017-01-12] MEDS: MORPHINE SULFATE 4 MG/ML CPJ (NOT FOR IM USE) IV PRN ×2 (12:37→13:57)
[2017-01-12] MEDS ORDERED: MORPHINE SULFATE 4 MG/ML CPJ (NOT FOR IM USE) IV SCH (14:00)
[2017-01-12] MEDS ORDERED: ENOXAPARIN 40MG/0.4ML SYR SUBCUT SCH (15:00)
[2017-01-12] MEDS: PIPERACILLIN/TAZ 3.375G PREMIX 50 ML IV SCH (19:48)
[2017-01-12] MEDS: ATORVASTATIN CALCIUM 20MG TABLET PO SCH (20:04)
[2017-01-12] MEDS ORDERED: VANCOMYCIN 1250MG in DEXTROSE 5% WATER 250ML IV SCH (20:30)
[2017-01-12] MEDS: DIPHENHYDRAMINE 50MG/ML VIAL IV PRN (22:05)
[2017-01-13] VITALS (13 sets, daily range): BP systolic 98–121; BP diastolic 48–69
[2017-01-13] MEDS: IPRATROPIUM/ALBUTEROL 0.5-3(2.5)MG/3ML NEB HHN SCH ×6 (00:48→19:57)
[2017-01-13] MEDS: PIPERACILLIN/TAZ 3.375G PREMIX 50 ML IV SCH ×4 (01:06→20:01)
[2017-01-13] MEDS: MORPHINE SULFATE 4 MG/ML CPJ (NOT FOR IM USE) IV PRN (04:31)
[2017-01-13 06:42] LABS: HEMATOCRIT. 33.6 % (42.0-52.0); HEMOGLOBIN. 11.1 g/dL (14.0-18.0); MEAN CORPUSCULAR HEMOGLOBIN 26.9 pg (28.0-32.0); MEAN CORPUSCULAR VOLUME 81.6 fL (80.0-94.0); MEAN PLATELET VOLUME 7.6 fl (7.4-10.4); PLATELET 302 x1000/uL (130-400); RED BLOOD CELL COUNT 4.12 mill/uL (4.7-6.1)
[2017-01-13] MEDS: PANTOPRAZOLE 40MG DR TABLET PO SCH (08:23)
[2017-01-13] MEDS: TAMSULOSIN HCL 0.4MG SR CAPSULE PO SCH ×3 (08:23→17:22)
[2017-01-13] MEDS: DOCUSATE SODIUM 100MG CAPSULE PO SCH ×4 (08:23→17:21)
[2017-01-13] MEDS: NIFEDIPINE XL 90MG TAB PO SCH (08:23)
[2017-01-13] MEDS: VANCOMYCIN 750 MG PREMIX 150 ML IV SCH ×2 (08:24→20:01)
[2017-01-13] MEDS: LACTULOSE 20G/30ML UDC PO SCH ×4 (08:24→17:21)
[2017-01-13] MEDS: GUAIFENESIN 600MG ER TABLET PO SCH ×2 (08:24→20:16)
[2017-01-13] MEDS: HYDROCORTISONE ACETATE 25MG SUPP PR SCH ×2 (08:50→20:16)
[2017-01-13] MEDS: BUDESONIDE 0.5MG/2ML NEB HHN SCH ×2 (09:03→19:57)
[2017-01-13] MEDS: TRAMADOL 50MG TABLET PO PRN ×2 (11:08→19:58)
[2017-01-13] MEDS: ACETAMINOPHEN 325MG TABLET PO PRN ×2 (12:38→19:57)
[2017-01-13 13:07] LABS: PLATELET ESTIMATE NORMAL
[2017-01-13] MEDS: ENOXAPARIN 40MG/0.4ML SYR SUBCUT SCH (14:04)
[2017-01-13] MEDS: ATORVASTATIN CALCIUM 20MG TABLET PO SCH (20:16)
[2017-01-14] VITALS (12 sets, daily range): BP systolic 89–128; BP diastolic 49–69
[2017-01-14] MEDS: IPRATROPIUM/ALBUTEROL 0.5-3(2.5)MG/3ML NEB HHN SCH ×6 (00:31→20:23)
[2017-01-14] MEDS: PIPERACILLIN/TAZ 3.375G PREMIX 50 ML IV SCH ×4 (01:13→20:05)
[2017-01-14] MEDS: ACETAMINOPHEN 325MG TABLET PO PRN ×2 (03:42→17:05)
[2017-01-14] MEDS: TRAMADOL 50MG TABLET PO PRN ×2 (03:42→17:06)
[2017-01-14] MEDS: LACTULOSE 20G/30ML UDC PO SCH ×3 (08:02→17:06)
[2017-01-14] MEDS: TAMSULOSIN HCL 0.4MG SR CAPSULE PO SCH ×2 (08:03→17:06)
[2017-01-14] MEDS: HYDROCORTISONE ACETATE 25MG SUPP PR SCH ×2 (08:03→20:05)
[2017-01-14] MEDS: GUAIFENESIN 600MG ER TABLET PO SCH ×2 (08:03→20:05)
[2017-01-14] MEDS: NIFEDIPINE XL 90MG TAB PO SCH (08:04)
[2017-01-14] MEDS: DOCUSATE SODIUM 100MG CAPSULE PO SCH ×3 (08:04→17:06)
[2017-01-14] MEDS: VANCOMYCIN 750 MG PREMIX 150 ML IV SCH (08:04)
[2017-01-14] MEDS: PANTOPRAZOLE 40MG DR TABLET PO SCH (08:06)
[2017-01-14] MEDS: BUDESONIDE 0.5MG/2ML NEB HHN SCH ×2 (08:28→20:24)
[2017-01-14] MEDS: MORPHINE SULFATE 4 MG/ML CPJ (NOT FOR IM USE) IV PRN (08:56)
[2017-01-14] MEDS: ENOXAPARIN 40MG/0.4ML SYR SUBCUT SCH (15:20)
[2017-01-14] MEDS: VANCOMYCIN 1 G PREMIX 200 ML IV SCH (20:05)
[2017-01-14] MEDS: ATORVASTATIN CALCIUM 20MG TABLET PO SCH (20:05)
[2017-01-14] MEDS: DIPHENHYDRAMINE 50MG/ML VIAL IV PRN (20:06)
[2017-01-14] MEDS: ZOLPIDEM TARTRATE 5MG TABLET PO PRN (22:51)
[2017-01-15] VITALS (12 sets, daily range): BP systolic 105–156; BP diastolic 49–84
[2017-01-15] MEDS: IPRATROPIUM/ALBUTEROL 0.5-3(2.5)MG/3ML NEB HHN SCH ×6 (00:32→20:28)
[2017-01-15] MEDS: PIPERACILLIN/TAZ 3.375G PREMIX 50 ML IV SCH ×4 (01:33→20:55)
[2017-01-15 06:03] LABS: HEMATOCRIT. 32.4 % (42.0-52.0); HEMOGLOBIN. 10.7 g/dL (14.0-18.0); MEAN CORPUSCULAR HEMOGLOBIN 26.9 pg (28.0-32.0); MEAN CORPUSCULAR VOLUME 81.2 fL (80.0-94.0); PLATELET 326 x1000/uL (130-400); RED BLOOD CELL COUNT 3.99 mill/uL (4.7-6.1); RED CELL DISTRIBUTION WIDTH 19.5 % (11.6-14.6)
[2017-01-15 06:40] LABS: CARBON DIOXIDE 29 mEq/L (21-32); CHLORIDE 102 mEq/L (98-107)
[2017-01-15] MEDS: TRAMADOL 50MG TABLET PO PRN ×2 (07:02→13:31)
[2017-01-15] MEDS: ACETAMINOPHEN 325MG TABLET PO PRN ×2 (07:02→13:31)
[2017-01-15] MEDS: NIFEDIPINE XL 90MG TAB PO SCH (08:14)
[2017-01-15] MEDS: HYDROCORTISONE ACETATE 25MG SUPP PR SCH ×2 (08:14→21:31)
[2017-01-15] MEDS: GUAIFENESIN 600MG ER TABLET PO SCH ×2 (08:14→21:00)
[2017-01-15] MEDS: TAMSULOSIN HCL 0.4MG SR CAPSULE PO SCH ×2 (08:15→17:26)
[2017-01-15] MEDS: PANTOPRAZOLE 40MG DR TABLET PO SCH (08:15)
[2017-01-15] MEDS: LACTULOSE 20G/30ML UDC PO SCH ×3 (08:15→16:49)
[2017-01-15] MEDS: DOCUSATE SODIUM 100MG CAPSULE PO SCH ×3 (08:15→16:49)
[2017-01-15] MEDS: BUDESONIDE 0.5MG/2ML NEB HHN SCH (08:52)
[2017-01-15] MEDS: VANCOMYCIN 1 G PREMIX 200 ML IV SCH ×2 (08:59→20:56)
[2017-01-15 11:55] LABS: PLATELET ESTIMATE NORMAL
[2017-01-15] MEDS: ENOXAPARIN 40MG/0.4ML SYR SUBCUT SCH (15:23)
[2017-01-15] MEDS: ZOLPIDEM TARTRATE 5MG TABLET PO PRN (21:31)
[2017-01-15] MEDS: ATORVASTATIN CALCIUM 20MG TABLET PO SCH (21:31)
[2017-01-16] VITALS (12 sets, daily range): BP systolic 90–127; BP diastolic 49–71
[2017-01-16] MEDS: IPRATROPIUM/ALBUTEROL 0.5-3(2.5)MG/3ML NEB HHN SCH ×6 (00:18→20:42)
[2017-01-16] MEDS: PIPERACILLIN/TAZ 3.375G PREMIX 50 ML IV SCH ×5 (02:20→21:06)
[2017-01-16] MEDS: PANTOPRAZOLE 40MG DR TABLET PO SCH ×2 (06:45→12:18)
[2017-01-16] MEDS: VANCOMYCIN 1 G PREMIX 200 ML IV SCH ×3 (08:42→21:52)
[2017-01-16] MEDS: LACTULOSE 20G/30ML UDC PO SCH ×3 (08:42→16:33)
[2017-01-16] MEDS: NIFEDIPINE XL 90MG TAB PO SCH (08:43)
[2017-01-16] MEDS: TAMSULOSIN HCL 0.4MG SR CAPSULE PO SCH ×2 (08:43→16:35)
[2017-01-16] MEDS: DOCUSATE SODIUM 100MG CAPSULE PO SCH ×3 (08:45→16:33)
[2017-01-16] MEDS: GUAIFENESIN 600MG ER TABLET PO SCH ×2 (08:45→21:00)
[2017-01-16] MEDS: HYDROCORTISONE ACETATE 25MG SUPP PR SCH ×2 (08:45→21:00)
[2017-01-16] MEDS: TRAMADOL 50MG TABLET PO PRN (08:45)
[2017-01-16] MEDS: SIMETHICONE 80MG TABLET CHEW PO PRN (10:18)
[2017-01-16] MEDS: ENOXAPARIN 40MG/0.4ML SYR SUBCUT SCH (14:52)
[2017-01-16] MEDS: HYDROMORPHONE HCL 2MG TABLET PO PRN (18:44)
[2017-01-16] MEDS: ACETAMINOPHEN 325MG TABLET PO PRN (20:00)
[2017-01-16] MEDS: ATORVASTATIN CALCIUM 20MG TABLET PO SCH (21:06)
[2017-01-16] MEDS: ZOLPIDEM TARTRATE 5MG TABLET PO PRN (21:06)
[2017-01-17] VITALS (12 sets, daily range): BP systolic 95–126; BP diastolic 43–80
[2017-01-17] MEDS: IPRATROPIUM/ALBUTEROL 0.5-3(2.5)MG/3ML NEB HHN SCH ×6 (00:24→20:01)
[2017-01-17] MEDS: PIPERACILLIN/TAZ 3.375G PREMIX 50 ML IV SCH ×4 (02:04→21:28)
[2017-01-17 06:38] LABS: HEMATOCRIT. 30.4 % (42.0-52.0); HEMOGLOBIN. 10.1 g/dL (14.0-18.0); MEAN CORPUSCULAR VOLUME 80.9 fL (80.0-94.0); MEAN PLATELET VOLUME 7.2 fl (7.4-10.4); PLATELET 365 x1000/uL (130-400); RED BLOOD CELL COUNT 3.76 mill/uL (4.7-6.1); RED CELL DISTRIBUTION WIDTH 19.1 % (11.6-14.6)
[2017-01-17] MEDS: PANTOPRAZOLE 40MG DR TABLET PO SCH (06:39)
[2017-01-17] MEDS: VANCOMYCIN 1 G PREMIX 200 ML IV SCH ×2 (07:59→21:28)
[2017-01-17] MEDS: LACTULOSE 20G/30ML UDC PO SCH ×3 (08:00→17:00)
[2017-01-17] MEDS: NIFEDIPINE XL 90MG TAB PO SCH (08:00)
[2017-01-17] MEDS: DOCUSATE SODIUM 100MG CAPSULE PO SCH ×3 (08:00→17:00)
[2017-01-17] MEDS: HYDROCORTISONE ACETATE 25MG SUPP PR SCH ×2 (08:00→21:00)
[2017-01-17] MEDS: TAMSULOSIN HCL 0.4MG SR CAPSULE PO SCH ×2 (08:00→17:09)
[2017-01-17] MEDS: GUAIFENESIN 600MG ER TABLET PO SCH ×2 (08:00→21:29)
[2017-01-17 08:09] LABS: CARBON DIOXIDE 28 mEq/L (21-32); CHLORIDE 99 mEq/L (98-107)
[2017-01-17 08:19] LABS: PHOSPHORUS 2.1 mg/dL (2.5-4.9)
[2017-01-17] MEDS: HYDROMORPHONE HCL 2MG TABLET PO PRN ×2 (11:34→20:04)
[2017-01-17] MEDS: ENOXAPARIN 40MG/0.4ML SYR SUBCUT SCH (14:36)
[2017-01-17 15:51] LABS: CLARITY URINE CLEAR (CLEAR); COLOR URINE YELLOW (YELLOW); GLUCOSE URINE NEGATIVE (NEGATIVE); KETONES URINE NEGATIVE (NEGATIVE); LEUKOCYTE ESTERASE URINE 1+ (NEGATIVE); NITRITE URINE NEGATIVE (NEGATIVE); OCCULT BLOOD URINE NEGATIVE (NEGATIVE); PROTEIN URINE 1+ (NEGATIVE); SPECIFIC GRAVITY URINE 1.015 (1.005-1.030)
[2017-01-17] MEDS: VANCOMYCIN HCL 1000 MG/20 ML ORAL PO SCH ×2 (19:16→23:55)
[2017-01-17] MEDS: ATORVASTATIN CALCIUM 20MG TABLET PO SCH (21:29)
[2017-01-17] MEDS: SIMETHICONE 80MG TABLET CHEW PO PRN (21:35)
[2017-01-17] MEDS: DIPHENHYDRAMINE 50MG/ML VIAL IV PRN (21:35)
[2017-01-17 22:20] LABS: PLATELET ESTIMATE NORMAL
[2017-01-17] MEDS: ACETAMINOPHEN 325MG TABLET PO PRN (23:20)
[2017-01-17] MEDS ORDERED: LORAZEPAM 2MG/ML CPJ IV PRN (23:30)
[2017-01-17] MEDS: ZOLPIDEM TARTRATE 5MG TABLET PO PRN (23:56)
[2017-01-18] VITALS (12 sets, daily range): BP systolic 98–126; BP diastolic 48–73
[2017-01-18] MEDS: TRAMADOL 50MG TABLET PO PRN ×3 (00:01→21:17)
[2017-01-18] MEDS: PIPERACILLIN/TAZ 3.375G PREMIX 50 ML IV SCH ×4 (02:32→21:12)
[2017-01-18] MEDS: IPRATROPIUM/ALBUTEROL 0.5-3(2.5)MG/3ML NEB HHN SCH ×7 (04:00→23:38)
[2017-01-18] MEDS: VANCOMYCIN HCL 1000 MG/20 ML ORAL PO SCH ×4 (05:50→23:54)
[2017-01-18 08:28] LABS: HEMATOCRIT. 29.8 % (42.0-52.0); HEMOGLOBIN. 9.7 g/dL (14.0-18.0); MEAN CORPUSCULAR HEMOGLOBIN 26.6 pg (28.0-32.0); MEAN CORPUSCULAR VOLUME 81.2 fL (80.0-94.0); PLATELET 383 x1000/uL (130-400); RED BLOOD CELL COUNT 3.67 mill/uL (4.7-6.1); RED CELL DISTRIBUTION WIDTH 19.2 % (11.6-14.6)
[2017-01-18] MEDS: NIFEDIPINE XL 90MG TAB PO SCH (09:00)
[2017-01-18] MEDS: HYDROCORTISONE ACETATE 25MG SUPP PR SCH ×2 (09:00→21:12)
[2017-01-18] MEDS: DOCUSATE SODIUM 100MG CAPSULE PO SCH ×3 (09:00→17:00)
[2017-01-18] MEDS: LACTULOSE 20G/30ML UDC PO SCH ×3 (09:00→17:00)
[2017-01-18 09:07] LABS: CARBON DIOXIDE 29 mEq/L (21-32); CHLORIDE 100 mEq/L (98-107)
[2017-01-18] MEDS: GUAIFENESIN 200MG/10ML SUGAR FREE UDC PO PRN (09:24)
[2017-01-18] MEDS: VANCOMYCIN 1 G PREMIX 200 ML IV SCH ×2 (09:26→21:12)
[2017-01-18] MEDS: FAMOTIDINE 20MG TABLET PO SCH ×2 (09:26→21:13)
[2017-01-18] MEDS: GUAIFENESIN 600MG ER TABLET PO SCH ×2 (10:07→21:12)
[2017-01-18] MEDS: TAMSULOSIN HCL 0.4MG SR CAPSULE PO SCH ×2 (10:07→17:53)
[2017-01-18] MEDS: HYDROMORPHONE HCL 2MG TABLET PO PRN (14:38)
[2017-01-18] MEDS: ENOXAPARIN 40MG/0.4ML SYR SUBCUT SCH (14:52)
[2017-01-18 17:05] LABS: PLATELET ESTIMATE NORMAL
[2017-01-18] MEDS: ZOLPIDEM TARTRATE 5MG TABLET PO PRN (21:12)
[2017-01-18] MEDS: ATORVASTATIN CALCIUM 20MG TABLET PO SCH (21:13)
[2017-01-18] MEDS: SIMETHICONE 80MG TABLET CHEW PO PRN (23:55)
[2017-01-19] VITALS (12 sets, daily range): BP systolic 104–153; BP diastolic 50–96
[2017-01-19] MEDS: PIPERACILLIN/TAZ 3.375G PREMIX 50 ML IV SCH ×4 (02:48→19:37)
[2017-01-19] MEDS: IPRATROPIUM/ALBUTEROL 0.5-3(2.5)MG/3ML NEB HHN SCH ×6 (03:45→23:53)
[2017-01-19] MEDS: TRAMADOL 50MG TABLET PO PRN ×3 (04:26→21:35)
[2017-01-19] MEDS: VANCOMYCIN HCL 1000 MG/20 ML ORAL PO SCH ×2 (06:18→12:44)
[2017-01-19] MEDS: ACETAMINOPHEN 325MG TABLET PO PRN ×3 (06:21→21:35)
[2017-01-19 06:44] LABS: BASOPHILS % 0.4 % (0.0-2.0); EOSINOPHILS % 1.4 % (0.0-5.0); HEMATOCRIT. 28.7 % (42.0-52.0); HEMOGLOBIN. 9.5 g/dL (14.0-18.0); LYMPHOCYTES % 7.2 % (20.0-50.0); MEAN CORPUSCULAR HEMOGLOBIN 26.8 pg (28.0-32.0); MEAN PLATELET VOLUME 7.4 fl (7.4-10.4); MONOCYTES % 10.7 % (2.0-8.0); NEUTROPHILS % 80.3 % (40.0-76.0); PLATELET 392 x1000/uL (130-400); RED BLOOD CELL COUNT 3.55 mill/uL (4.7-6.1)
[2017-01-19] MEDS: VANCOMYCIN 1 G PREMIX 200 ML IV SCH ×2 (08:54→19:37)
[2017-01-19] MEDS: HYDROCORTISONE ACETATE 25MG SUPP PR SCH ×2 (08:55→20:32)
[2017-01-19] MEDS: NIFEDIPINE XL 90MG TAB PO SCH (08:55)
[2017-01-19] MEDS: FAMOTIDINE 20MG TABLET PO SCH ×2 (08:55→20:32)
[2017-01-19] MEDS: GUAIFENESIN 600MG ER TABLET PO SCH ×2 (08:55→20:32)
[2017-01-19] MEDS: TAMSULOSIN HCL 0.4MG SR CAPSULE PO SCH ×2 (08:56→17:00)
[2017-01-19] MEDS: DOCUSATE SODIUM 100MG CAPSULE PO SCH ×3 (09:00→17:00)
[2017-01-19] MEDS: LACTULOSE 20G/30ML UDC PO SCH ×3 (09:00→17:00)
[2017-01-19] MEDS ORDERED: SIMETHICONE 80MG TABLET CHEW PO PRN (11:45)
[2017-01-19] MEDS: ENOXAPARIN 40MG/0.4ML SYR SUBCUT SCH (15:40)
[2017-01-19] MEDS: ATORVASTATIN CALCIUM 20MG TABLET PO SCH (20:32)
[2017-01-19] MEDS: ZOLPIDEM TARTRATE 5MG TABLET PO PRN (21:35)
[2017-01-20] VITALS (12 sets, daily range): BP systolic 103–129; BP diastolic 55–75
[2017-01-20] MEDS: IPRATROPIUM/ALBUTEROL 0.5-3(2.5)MG/3ML NEB HHN SCH ×5 (03:53→20:22)
[2017-01-20 06:40] LABS: HEMATOCRIT. 29.2 % (42.0-52.0); HEMOGLOBIN. 9.8 g/dL (14.0-18.0); MEAN CORPUSCULAR VOLUME 80.6 fL (80.0-94.0); MEAN PLATELET VOLUME 7.3 fl (7.4-10.4); PLATELET 421 x1000/uL (130-400); RED BLOOD CELL COUNT 3.62 mill/uL (4.7-6.1); RED CELL DISTRIBUTION WIDTH 18.6 % (11.6-14.6)
[2017-01-20] MEDS: HYDROCORTISONE ACETATE 25MG SUPP PR SCH ×2 (09:00→21:00)
[2017-01-20] MEDS: DOCUSATE SODIUM 100MG CAPSULE PO SCH ×3 (09:00→17:00)
[2017-01-20] MEDS: LACTULOSE 20G/30ML UDC PO SCH ×3 (09:00→17:00)
[2017-01-20] MEDS: TAMSULOSIN HCL 0.4MG SR CAPSULE PO SCH ×2 (09:00→17:00)
[2017-01-20] MEDS: NIFEDIPINE XL 90MG TAB PO SCH (09:41)
[2017-01-20] MEDS: GUAIFENESIN 600MG ER TABLET PO SCH ×2 (09:41→21:20)
[2017-01-20] MEDS: FAMOTIDINE 20MG TABLET PO SCH (09:41)
[2017-01-20 10:54] LABS: PLATELET ESTIMATE INCREASED
[2017-01-20] MEDS ORDERED: METOCLOPRAMIDE HCL 10MG/2ML VIAL IV NR (15:00)
[2017-01-20] MEDS ORDERED: DIATR MEGLU/DIATRIZOATE SOLN 30ML PO SCH (15:00)
[2017-01-20] MEDS: VANCOMYCIN 1 G PREMIX 200 ML IV SCH ×2 (15:11→23:21)
[2017-01-20] MEDS: ENOXAPARIN 40MG/0.4ML SYR SUBCUT SCH (15:12)
[2017-01-20] MEDS: PANTOPRAZOLE SODIUM 40 MG/VIAL IV SCH (17:11)
[2017-01-20] MEDS: METOCLOPRAMIDE HCL 10MG/2ML VIAL IV SCH ×2 (17:14→23:24)
[2017-01-20] MEDS: TRAMADOL 50MG TABLET PO PRN (18:54)
[2017-01-20] MEDS: ZOLPIDEM TARTRATE 5MG TABLET PO PRN (21:20)
[2017-01-20] MEDS: ATORVASTATIN CALCIUM 20MG TABLET PO SCH (21:20)
[2017-01-20] MEDS: ACETAMINOPHEN 325MG TABLET PO PRN (21:20)
[2017-01-21] VITALS (13 sets, daily range): BP systolic 102–134; BP diastolic 51–75
[2017-01-21] MEDS: IPRATROPIUM/ALBUTEROL 0.5-3(2.5)MG/3ML NEB HHN SCH ×6 (00:59→20:33)
[2017-01-21] MEDS: METOCLOPRAMIDE HCL 10MG/2ML VIAL IV SCH ×3 (05:33→17:03)
[2017-01-21] MEDS: NIFEDIPINE XL 90MG TAB PO SCH (08:04)
[2017-01-21] MEDS: PANTOPRAZOLE SODIUM 40 MG/VIAL IV SCH ×2 (08:04→17:03)
[2017-01-21] MEDS: GUAIFENESIN 600MG ER TABLET PO SCH ×2 (08:04→20:17)
[2017-01-21] MEDS: DOCUSATE SODIUM 100MG CAPSULE PO SCH ×3 (08:06→16:46)
[2017-01-21] MEDS: LACTULOSE 20G/30ML UDC PO SCH ×3 (08:06→16:46)
[2017-01-21] MEDS: TAMSULOSIN HCL 0.4MG SR CAPSULE PO SCH ×2 (08:07→17:04)
[2017-01-21] MEDS: VANCOMYCIN 1 G PREMIX 200 ML IV SCH (08:09)
[2017-01-21] MEDS: HYDROCORTISONE ACETATE 25MG SUPP PR SCH ×2 (08:10→20:17)
[2017-01-21] MEDS: ENOXAPARIN 40MG/0.4ML SYR SUBCUT SCH (14:56)
[2017-01-21] MEDS: ACETAMINOPHEN 325MG TABLET PO PRN (18:45)
[2017-01-21] MEDS: ATORVASTATIN CALCIUM 20MG TABLET PO SCH (20:17)
[2017-01-21] MEDS: TRAMADOL 50MG TABLET PO PRN (23:18)
[2017-01-21] MEDS: ZOLPIDEM TARTRATE 5MG TABLET PO PRN (23:19)
[2017-01-22] VITALS (12 sets, daily range): BP systolic 106–132; BP diastolic 47–68
[2017-01-22] MEDS: IPRATROPIUM/ALBUTEROL 0.5-3(2.5)MG/3ML NEB HHN SCH ×6 (00:26→20:24)
[2017-01-22] MEDS: METOCLOPRAMIDE HCL 10MG/2ML VIAL IV SCH ×3 (01:06→12:00)
[2017-01-22] MEDS: GUAIFENESIN 600MG ER TABLET PO SCH ×2 (08:57→21:13)
[2017-01-22] MEDS: TAMSULOSIN HCL 0.4MG SR CAPSULE PO SCH ×2 (08:57→16:48)
[2017-01-22] MEDS: PANTOPRAZOLE SODIUM 40 MG/VIAL IV SCH ×2 (08:57→16:48)
[2017-01-22] MEDS: DOCUSATE SODIUM 100MG CAPSULE PO SCH ×3 (08:58→16:44)
[2017-01-22] MEDS: LACTULOSE 20G/30ML UDC PO SCH ×3 (08:58→16:43)
[2017-01-22] MEDS: HYDROCORTISONE ACETATE 25MG SUPP PR SCH ×2 (08:58→21:00)
[2017-01-22] MEDS: NIFEDIPINE XL 90MG TAB PO SCH (08:58)
[2017-01-22] MEDS: ENOXAPARIN 40MG/0.4ML SYR SUBCUT SCH (15:46)
[2017-01-22] MEDS: TRAMADOL 50MG TABLET PO PRN (15:46)
[2017-01-22] MEDS: ATORVASTATIN CALCIUM 20MG TABLET PO SCH (21:13)
[2017-01-22] MEDS: ZOLPIDEM TARTRATE 5MG TABLET PO PRN (21:32)
[2017-01-23] VITALS (10 sets, daily range): BP systolic 107–132; BP diastolic 49–96
[2017-01-23] MEDS: IPRATROPIUM/ALBUTEROL 0.5-3(2.5)MG/3ML NEB HHN SCH ×5 (00:28→20:06)
[2017-01-23] MEDS ORDERED: ZOLPIDEM TARTRATE 5MG TABLET PO PRN (04:00)
[2017-01-23] MEDS: ONDANSETRON HCL 4MG/2ML VIAL IV PRN (04:02)
[2017-01-23] MEDS: TRAMADOL 50MG TABLET PO PRN ×3 (04:02→19:53)
[2017-01-23 07:12] LABS: INR 1.1; PARTIAL THROMBOPLASTIN TIME 29.8 sec (23.4-31.0)
[2017-01-23 07:13] LABS: HEMATOCRIT. 26.5 % (42.0-52.0); HEMOGLOBIN. 8.7 g/dL (14.0-18.0); MEAN CORPUSCULAR HEMOGLOBIN 26.3 pg (28.0-32.0); MEAN CORPUSCULAR VOLUME 80.5 fL (80.0-94.0); MEAN PLATELET VOLUME 7.4 fl (7.4-10.4); PLATELET 381 x1000/uL (130-400); RED BLOOD CELL COUNT 3.29 mill/uL (4.7-6.1); RED CELL DISTRIBUTION WIDTH 18.9 % (11.6-14.6)
[2017-01-23] MEDS: PANTOPRAZOLE SODIUM 40 MG/VIAL IV SCH ×2 (08:50→17:58)
[2017-01-23] MEDS: NIFEDIPINE XL 90MG TAB PO SCH (09:00)
[2017-01-23] MEDS: TAMSULOSIN HCL 0.4MG SR CAPSULE PO SCH ×2 (09:00→17:00)
[2017-01-23] MEDS: DOCUSATE SODIUM 100MG CAPSULE PO SCH ×3 (09:00→17:00)
[2017-01-23] MEDS: HYDROCORTISONE ACETATE 25MG SUPP PR SCH ×2 (09:00→21:00)
[2017-01-23] MEDS: GUAIFENESIN 600MG ER TABLET PO SCH ×2 (09:00→20:03)
[2017-01-23] MEDS: LACTULOSE 20G/30ML UDC PO SCH ×3 (09:00→17:00)
[2017-01-23] MEDS ORDERED: SODIUM CHLORIDE 0.9% 10ML VIAL ONE (12:39)
[2017-01-23] MEDS ORDERED: SIMETHICONE 40 MG/0.6 ML 30ML ONE (12:39)
[2017-01-23] MEDS ORDERED: KCL 20MEQ/100ML PREMIX 100 ML IV NR (13:00)
[2017-01-23] MEDS ORDERED: MIDAZOLAM HCL 5 MG/5 ML VIAL ONE (14:36)
[2017-01-23] MEDS ORDERED: FENTANYL CITRATE/PF 50MCG/ML 2ML VIAL ONE (14:36)
[2017-01-23] MEDS: ENOXAPARIN 30MG/0.3ML SYR SUBCUT SCH (14:42)
[2017-01-23] MEDS ORDERED: MIDAZOLAM HCL 5 MG/5 ML VIAL IV PRN (14:59)
[2017-01-23] MEDS ORDERED: FENTANYL CITRATE/PF 50MCG/ML 2ML VIAL IV PRN (14:59)
[2017-01-23 17:38] LABS: PLATELET ESTIMATE NORMAL
[2017-01-23 18:12] LABS: VITAMIN B12 SERUM 944 pg/mL (211-911)
[2017-01-23] MEDS: ACETAMINOPHEN 325MG TABLET PO PRN (19:53)
[2017-01-23] MEDS: ATORVASTATIN CALCIUM 20MG TABLET PO SCH (20:03)
[2017-01-24] VITALS (14 sets, daily range): BP systolic 86–126; BP diastolic 37–64
[2017-01-24] MEDS: IPRATROPIUM/ALBUTEROL 0.5-3(2.5)MG/3ML NEB HHN SCH ×6 (00:43→20:27)
[2017-01-24] MEDS: ONDANSETRON HCL 4MG/2ML VIAL IV PRN ×2 (01:16→21:42)
[2017-01-24 06:36] LABS: HEMATOCRIT. 27.5 % (42.0-52.0); HEMOGLOBIN. 8.9 g/dL (14.0-18.0); MEAN CORPUSCULAR HEMOGLOBIN 26.1 pg (28.0-32.0); MEAN CORPUSCULAR VOLUME 80.6 fL (80.0-94.0); MEAN PLATELET VOLUME 7.3 fl (7.4-10.4); PLATELET 368 x1000/uL (130-400); RED BLOOD CELL COUNT 3.41 mill/uL (4.7-6.1)
[2017-01-24] MEDS: TAMSULOSIN HCL 0.4MG SR CAPSULE PO SCH ×2 (09:00→17:00)
[2017-01-24] MEDS: HYDROCORTISONE ACETATE 25MG SUPP PR SCH ×2 (09:00→21:35)
[2017-01-24] MEDS: LACTULOSE 20G/30ML UDC PO SCH ×3 (09:00→17:00)
[2017-01-24] MEDS: DOCUSATE SODIUM 100MG CAPSULE PO SCH ×3 (09:00→17:00)
[2017-01-24] MEDS: GUAIFENESIN 600MG ER TABLET PO SCH ×2 (09:28→21:35)
[2017-01-24] MEDS: PANTOPRAZOLE SODIUM 40 MG/VIAL IV SCH ×2 (09:28→17:40)
[2017-01-24] MEDS: NIFEDIPINE XL 90MG TAB PO SCH (09:28)
[2017-01-24] MEDS ORDERED: POTASSIUM CHLORIDE 20MEQ/PACKET PO NR (10:00)
[2017-01-24 11:01] LABS: PLATELET ESTIMATE NORMAL
[2017-01-24] MEDS ORDERED: MAGNESIUM/ALUMINUM HYDROXIDE/SIMETHICONE 30ML UDC PO PRN (12:30)
[2017-01-24 12:35] LABS: CREATINE KINASE 36 IU/L (39-308); CREATINE KINASE MB FRACTION 1.2 ng/mL (0.5-3.6); TROPONIN I < 0.02 ng/mL (0.00-0.04)
[2017-01-24] MEDS: ENOXAPARIN 30MG/0.3ML SYR SUBCUT SCH (15:04)
[2017-01-24] MEDS: ACETAMINOPHEN 325MG TABLET PO PRN (15:54)
[2017-01-24] MEDS: TRAMADOL 50MG TABLET PO PRN (15:55)
[2017-01-24 18:36] LABS: CLARITY URINE CLOUDY (CLEAR); COLOR URINE YELLOW (YELLOW); GLUCOSE URINE NEGATIVE (NEGATIVE); KETONES URINE NEGATIVE (NEGATIVE); LEUKOCYTE ESTERASE URINE 1+ (NEGATIVE); NITRITE URINE NEGATIVE (NEGATIVE); OCCULT BLOOD URINE TRACE (NEGATIVE); PROTEIN URINE 1+ (NEGATIVE); SPECIFIC GRAVITY URINE 1.017 (1.005-1.030); UROBILINOGEN URINE 0.2 E.U./dL (0.2-1.0)
[2017-01-24] MEDS: ATORVASTATIN CALCIUM 20MG TABLET PO SCH (21:35)
[2017-01-25] MEDS ORDERED: LACTOBACILLUS GG CAPSULE PO SCH (09:00)
[2017-01-25 09:12] LABS: FOLATE HEMATOCRIT 29.2 % (37.5-51.0)
[2017-01-25 13:06] LABS: FOLATE HEMOLYSATE 384.2 ng/mL (Not Estab.); FOLATE RBC 1316 ng/mL (>498)
== END 2017-01-24 22:25 | DRG 871 ==
LOC: ER 21:04 → EDBEDREQTM 12-30 00:13 → 5EST 12-30 00:13 → EDBEDREQ 12-30 00:13 → ENRESERV 12-30 01:03 → ER 12-30 01:32
PROVIDERS: ADMIT Internal Medicine; ATTEND Internal Medicine
PROC: 30233L1 Transfusion of Nonautologous Fresh Plasma into Peripheral Vein, Percutaneous Approach (ICD-10-PCS; 2016-12-29)
PROC: 30233K1 Transfusion of Nonautologous Frozen Plasma into Peripheral Vein, Percutaneous Approach (ICD-10-PCS; 2016-12-29)
PROC: 0W9930Z Drainage of Right Pleural Cavity with Drainage Device, Percutaneous Approach (ICD-10-PCS; principal; 2016-12-31)
PROC: 0WP8X0Z Removal of Drainage Device from Chest Wall, External Approach (ICD-10-PCS; 2017-01-09)
PROC: 30233N1 Transfusion of Nonautologous Red Blood Cells into Peripheral Vein, Percutaneous Approach (ICD-10-PCS; 2017-01-10)
PROC: 0DB78ZX Excision of Stomach, Pylorus, Via Natural or Artificial Opening Endoscopic, Diagnostic (ICD-10-PCS; 2017-01-23)
DX: A41.9 Sepsis, unspecified organism (principal); J69.0 Pneumonitis due to inhalation of food and vomit; J96.00 Acute respiratory failure, unspecified whether with hypoxia or hypercapnia; E43 Unspecified severe protein-calorie malnutrition; K56.609 Unspecified intestinal obstruction, unspecified as to partial versus complete obstruction; N17.9 Acute kidney failure, unspecified; I27.20 Pulmonary hypertension, unspecified; K31.84 Gastroparesis; I47.1 Supraventricular tachycardia; J44.1 Chronic obstructive pulmonary disease with (acute) exacerbation; J93.9 Pneumothorax, unspecified; N39.0 Urinary tract infection, site not specified; I11.0 Hypertensive heart disease with heart failure; I50.9 Heart failure, unspecified; D64.9 Anemia, unspecified; E87.6 Hypokalemia; J98.2 Interstitial emphysema; R68.81 Early satiety; K21.9 Gastro-esophageal reflux disease without esophagitis; B95.62 Methicillin resistant Staphylococcus aureus infection as the cause of diseases classified elsewhere; K29.40 Chronic atrophic gastritis without bleeding; S46.001A Unspecified injury of muscle(s) and tendon(s) of the rotator cuff of right shoulder, initial encounter; X58.XXXA Exposure to other specified factors, initial encounter; F17.210 Nicotine dependence, cigarettes, uncomplicated; I73.9 Peripheral vascular disease, unspecified; K56.41 Fecal impaction; N40.0 Benign prostatic hyperplasia without lower urinary tract symptoms; T38.0X5A Adverse effect of glucocorticoids and synthetic analogues, initial encounter; Y93.89 Activity, other specified; Y92.89 Other specified places as the place of occurrence of the external cause; Y99.8 Other external cause status; Z68.24 Body mass index [BMI] 24.0-24.9, adult; Z79.01 Long term (current) use of anticoagulants; Z79.899 Other long term (current) drug therapy; Z86.010 Personal history of colon polyps; Z86.711 Personal history of pulmonary embolism; Z99.81 Dependence on supplemental oxygen
CPT/HCPCS: 32405; 32551; 36415; 36600; 71010; 71275; 73030; 74000; 74176; 77012; 80048; 80053; 80061; 80202; 81001; 82375; 82550; 82553; 82607; 82747; 82805; 83036; 83605; 83690; 83735; 83880; 84100; 84439; 84443; 84484; 85014; 85025; 85379; 85610; 85730; 86850; 86900; 86920; 86927; 87015; 87040; 87045; 87070; 87077; 87086; 87205; 87427; 87449; 87493; 88305; 88312; 88313; 89055; 93005; 93306; 93970; 93971; 94640; 94644; 94660; 96365; 96375; 97110; 97163; 97165; 97530; 99291; A4216; A6261; C1725; C1893; C9113; J0690; J1170; J1200; J1650; J1956; J2250; J2270; J2405; J2543; J2765; J2920; J2930; J3010; J3370; J3475; J3480; J3490; J7050; J7060; J7512; J7611; J7620; J7626; P9016; P9017; Q9963; Q9967